=== PATIENT | female | born 1960 | race Caucasian/White ===

== ENCOUNTER 2016-09-03 11:37 | Emergency (ER) | payer MEDICAID ==
[~2016-09-03] VITALS: Ht 160 cm; Wt 56.0 kg
[~2016-09-03 11:37] MED LIST: ATEN50TA41 PO; HYDROXYZINE PO; NORT50CA PO; TRAM50TA2 PO; [UNRECOGNIZED DRUG - OTHER] PO
[2016-09-03] MEDS ORDERED: DIAZEPAM 5 MG TABLET ONE (12:21)
[2016-09-03] MEDS ORDERED: KETOROLAC 30 MG/1 ML ONE (12:21)
[2016-09-03] MEDS ORDERED: KETOROLAC 30 MG/1 ML IM ONE (12:30)
[2016-09-03] MEDS ORDERED: PLEASE ENTER ALLERGIES MC SCH ×2 (12:30)
[2016-09-03] MEDS ORDERED: DIAZEPAM 5 MG TABLET PO ONE (12:30)
[2016-09-03 13:17] VITALS: BP 152/97
== END 2016-09-03 13:20 | disposition home or self-care (01) ==
LOC: ED 13:14
DX: S43.401A Unspecified sprain of right shoulder joint, initial encounter (principal); I10 Essential (primary) hypertension; G43.909 Migraine, unspecified, not intractable, without status migrainosus; W01.0XXA Fall on same level from slipping, tripping and stumbling without subsequent striking against object, initial encounter; Y93.89 Activity, other specified; Y92.89 Other specified places as the place of occurrence of the external cause; Y99.8 Other external cause status
CPT/HCPCS: 73030; 96372; 99284; J1885

== ENCOUNTER 2016-10-23 21:38 | Emergency (ER) | payer MEDICAID ==
[~2016-10-23] VITALS: Ht 160 cm; Wt 56.9 kg
[2016-10-23] MEDS ORDERED: METOCLOPRAMIDE 5 MG/ML, 2ML IVPush ONE (22:30)
[2016-10-23] MEDS ORDERED: SODIUM CHLORIDE 0.9% 1,000ML IVBOLUS ONE (22:30)
[2016-10-23] MEDS ORDERED: DIPHENHYDRAMINE 50 MG/ML, 1ML IVPush ONE (22:30)
[2016-10-23] MEDS ORDERED: SODIUM CHLORIDE FLUSH 10ML SYR IVF ONE (22:30)
[2016-10-23] MEDS ORDERED: KETOROLAC 30 MG/1 ML IVPush ONE (22:30)
[2016-10-23] MEDS ORDERED: ONDANSETRON 2MG/ML, 2ML IVPush ONE (22:30)
[2016-10-23] MEDS ORDERED: ONDANSETRON 2MG/ML, 2ML ONE (23:13)
[2016-10-23] MEDS ORDERED: KETOROLAC 30 MG/1 ML ONE (23:13)
[2016-10-23] MEDS ORDERED: DIPHENHYDRAMINE 50 MG/ML, 1ML ONE (23:13)
[2016-10-23] MEDS ORDERED: METOCLOPRAMIDE 5 MG/ML, 2ML ONE (23:13)
[2016-10-23 23:47] LABS: BLOOD UREA NITROGEN 20 mg/dL (7-18)
[2016-10-24] MEDS ORDERED: ESTR0.5T PO (00:13)
[2016-10-24 01:33] VITALS: BP 127/64
== END 2016-10-24 01:36 | disposition home or self-care (01) ==
LOC: ED 23:26
DX: G43.009 Migraine without aura, not intractable, without status migrainosus (principal); I10 Essential (primary) hypertension; F41.9 Anxiety disorder, unspecified
CPT/HCPCS: 36415; 70450; 72125; 80048; 82040; 85025; 96374; 96375; 99285; J1200; J1885; J2765

== ENCOUNTER 2017-03-01 18:23 | Emergency (ER) | payer MEDICAID ==
[~2017-03-01] VITALS: Ht 160 cm; Wt 59.0 kg
[~2017-03-01 18:23] MED LIST changes: +ESTR0.5T PO
[2017-03-01 18:26] VITALS: BP 164/105
[2017-03-01] MEDS ORDERED: FLUO20CA19 PO (18:33)
[2017-03-01] MEDS ORDERED: ALPR1TAB2 PO (18:33)
[2017-03-01] MEDS ORDERED: DIPH,PERTUSS(ACELL),TET VAC/PF 0.5 ML IM-VACC ONE ×2 (18:52→19:00)
[2017-03-01] MEDS ORDERED: BACITRACIN ZINC OINT 500U/GM, 0.9 GM ONE (19:05)
== END 2017-03-01 19:34 | disposition home or self-care (01) ==
LOC: ED 19:02
DX: S01.25XA Open bite of nose, initial encounter (principal); W54.0XXA Bitten by dog, initial encounter; Y93.89 Activity, other specified; Y92.89 Other specified places as the place of occurrence of the external cause; Y99.8 Other external cause status
CPT/HCPCS: 90471; 90715

== ENCOUNTER 2017-06-30 13:04 | Emergency (ER) | payer MEDICAID ==
[~2017-06-30] VITALS: Ht 160 cm; Wt 57.0 kg
[~2017-06-30 13:04] MED LIST changes: +ALPR1TAB2 PO; +FLUO20CA19 PO
[2017-06-30] MEDS ORDERED: SODIUM CHLORIDE FLUSH 10ML SYR IVF ONE (13:30)
[2017-06-30] MEDS ORDERED: ONDANSETRON 2MG/ML, 2ML IVPush ONE (13:30)
[2017-06-30] MEDS ORDERED: MORPHINE SULFATE 4 MG/ML, 1ML ONE ×2 (13:35→15:30)
[2017-06-30] MEDS ORDERED: ONDANSETRON 2MG/ML, 2ML ONE (13:35)
[2017-06-30] MEDS: MORPHINE SULFATE 4 MG/ML, 1ML IVPush PRN ×2 (13:38→15:32)
[2017-06-30 13:54] LABS: BASOPHILS # (AUTO) 0.03 x10^3/uL (0-0.1); BASOPHILS % (AUTO) 0 % (0-1); EOSINOPHILS # (AUTO) 0.02 x10^3/uL (0-0.4); EOSINOPHILS % (AUTO) 0 % (1-7); LYMPHOCYTES # (AUTO) 0.77 x10^3/uL (1-3.4); LYMPHOCYTES % (AUTO) 8 % (22-44); MD NO; MEAN CORPUSCULAR HEMOGLOBIN 30.3 pg (27.0-34.8); MEAN CORPUSCULAR HGB CONC 33.6 g/dL (32.4-35.8); MEAN CORPUSCULAR VOLUME 90.4 fL (80-100); MEAN PLATELET VOLUME 8.7 fL (7.4-10.4); MONOCYTES # (AUTO) 0.45 x10^3/uL (0.2-0.8); MONOCYTES % (AUTO) 5 % (2-9); NEUTROPHILS # (AUTO) 8.15 x10^3/uL (1.8-6.8); NEUTROPHILS % (AUTO) 87 % (42-75); PLATELET COUNT 209 x10^3/uL (130-400)
[2017-06-30 13:58] LABS: MICROSCOPIC INDICATED
[2017-06-30 13:59] LABS: CULTURE INDICATED? YES
[2017-06-30] MEDS ORDERED: PLEASE ENTER ALLERGIES MC SCH (14:00)
[2017-06-30 14:02] LABS: ALANINE AMINOTRANSFERASE 28 U/L (12-78); ALBUMIN 3.2 g/dL (3.4-5.0); ANION GAP 9 mmol/L (5-15); CALCIUM 8.1 mg/dL (8.5-10.1); CHLORIDE 104 mmol/L (98-107); CREATININE 0.74 mg/dL (0.55-1.02)
[2017-06-30 14:04] LABS: ALKALINE PHOSPHATASE 72 U/L (45-117); BILIRUBIN,TOTAL 0.7 mg/dL (0.2-1.0)
[2017-06-30] MEDS ORDERED: QUET25TA5 PO (14:16)
[2017-06-30] MEDS ORDERED: OMNIPAQUE 350 MG/ML, 100ML BOTTLE ONE (14:33)
[2017-06-30] MEDS ORDERED: LEVOFLOXACIN/PMX 500MG/100ML 100 ML IV ONE (15:00)
[2017-06-30] MEDS ORDERED: LEVOFLOXACIN/PMX 500MG/100ML 100 ML ONE (15:23)
[2017-06-30 17:37] VITALS: BP 130/72
== END 2017-06-30 17:38 | disposition home or self-care (01) ==
LOC: ED 14:12
DX: N30.91 Cystitis, unspecified with hematuria (principal); I10 Essential (primary) hypertension; Z90.710 Acquired absence of both cervix and uterus
CPT/HCPCS: 36415; 74177; 80053; 81001; 83690; 85025; 87077; 87086; 87186; 93005; 96365; 96375; 96376; 99285; J1956; J2405; Q9967